=== PATIENT | female | born 1990 | race Caucasian/White ===

== ENCOUNTER → 2016-10-24 | Outpatient (CLI) | payer BC | END | disposition home or self-care (01) | LOC: C.PAPS 09:31 | PROVIDERS: ATTEND Obstetrics & Gynecology | DX: Z01.419 Encounter for gynecological examination (general) (routine) without abnormal findings (principal) ==

== ENCOUNTER → 2017-08-23 | Outpatient (CLI) | payer BC ==
[2017-08-23 18:03] LABS: PREG INTERNAL NEGATIVE QC NEG CLEAR BACKGROUND; PREG INTERNAL POSITIVE QC POS CONTROL LINE
== END | disposition home or self-care (01) ==
LOC: C.LAB1850 16:27
PROVIDERS: ATTEND Physician Assistant
DX: N92.6 Irregular menstruation, unspecified (principal)

== ENCOUNTER → 2017-11-01 | Outpatient (CLI) | payer BC | END | disposition home or self-care (01) | LOC: C.PAPS 10:14 | PROVIDERS: ATTEND Physician Assistant | DX: Z01.419 Encounter for gynecological examination (general) (routine) without abnormal findings (principal) ==

== ENCOUNTER → 2018-04-08 | Outpatient (CLI) | payer BC ==
[2018-04-08 10:17] LABS: BASO % 0.5 %; BASO ABS # 0.03 K/uL (0-0.2); EOS % 1.5 %; EOS ABS # 0.09 K/uL (0-0.5); HEMATOCRIT 38.4 % (37-47); HEMOGLOBIN 13.4 g/dL (12.0-16.0); LYMPH % 21.3 %; LYMPH ABS # 1.31 K/uL (1.2-3.4); MEAN CELL VOLUME 89.1 fL (80-100); MEAN CORPUSCULAR HEMOGLOBIN 31.1 pg (25-34); MEAN CORPUSCULAR HGB CONC 34.9 g/dl (32-36); MEAN PLATELET VOLUME 10.2 fL (7.4-10.4); MONO % 7.1 %; MONO ABS # 0.44 K/uL (0.11-0.59); NEUT % 69.6 %; NEUT ABS # 4.29 K/uL (1.4-6.5); PLATELET COUNT 286 K/uL (130-400); RED CELL DISTRIBUTION WIDTH CV 12.5 % (11.5-14.5); RED CELL DISTRIBUTION WIDTH SD 40.2 fL (36.4-46.3); WHITE BLOOD COUNT 6.16 K/uL (4.8-10.8)
== END | disposition home or self-care (01) ==
LOC: C.LAB1850 09:00
PROVIDERS: ATTEND Obstetrics & Gynecology
DX: Z34.01 Encounter for supervision of normal first pregnancy, first trimester (principal)

== ENCOUNTER → 2018-05-06 | Outpatient (CLI) | payer BC | END | disposition home or self-care (01) | LOC: C.LABSPEC 13:51 | PROVIDERS: ATTEND Obstetrics & Gynecology | DX: O23.41 Unspecified infection of urinary tract in pregnancy, first trimester (principal) ==

== ENCOUNTER 2018-11-25 14:01 | Inpatient (IN) ==
[2018-11-25] MEDS ORDERED: OXYTOCIN 30 UNITS/500 ML BAG IV PRN (14:10)
[2018-11-25] MEDS ORDERED: LACTATED RINGER'S 1,000 ML IV PRN ×3 (14:10→17:55)
[2018-11-25 14:49] LABS: Hematocrit (blood only) 36.5 % (37-47); Hemoglobin 12.8 g/dL (12.0-16.0); Mean Corpuscular Volume 90.6 fL (80-100); Mean Platelet Volume 10.2 fL (7.4-10.4); Platelet Count 226 K/uL (130-400); RDW Coefficient of Variation 13.4 % (11.5-14.5); Red Blood Count 4.03 M/uL (4.2-5.4); White Blood Count 6.83 K/uL (4.8-10.8)
[2018-11-25 15:05] LABS: Mean Corpuscular Hgb Conc 35.1 g/dL (32-36)
--- NOTE | 2018-11-25 15:41 | History & Physical Report ---
Date of Service November 25, 2018 Assessment & Plan (1) Normal labor: IUP at 41 weeks in labor will admit and allow her to walk for now. will AROM when cervix is reachable anticipate vaginl . History of Present Illness Primary Care Provider: NO PCP Patient is a 28 yo white female who presents at 41 weeks with regular contractions & cervical change. She was checked in the office & is now 4cm dilated. NO SPROM or bloody show. She is being admitted in labor. Allergies Allergy/AdvReac Type Severity Reaction Status Date / Time No Known Allergies Allergy Unverified 11/25/18 01:54 Home Medications Home Medications Medication Instructions Recorded Confirmed Type vit-iron fum-folic ac 1 tab PO DAILY 11/25/18 11/25/18 History [ Vitamin] ranitidine HCl 250 mg PO DAILY 11/25/18 11/25/18 History Patient History Social History Preferred Language: Ecuadorean Communication Ability: Effective Securities Attorney Required: No Beliefs That Will Affect Care: None marital status: Current Living Situation: Spouse Other Information That Helps Us Care for You: No Feels Safe at Home: Yes Safety Concerns: Feels Safe At This Time Smoking Status: Never smoker Hx Alcohol Use: No Hx Substance Use: No Review of Systems All systems reviewed & are unremarkable except as noted in HPI & below Physical Exam Vital Signs (Past 24 Hours): Last Vital Signs Temp 36.7 C 11/25/18 15:25 Pulse 96 H 11/25/18 15:25 Resp 18 11/25/18 15:25 BP 128/84 11/25/18 15:25 Constitutional: WD/WN, vitals as above Respiratory: normal respiratory effort, lungs clear to auscultation Cardiovascular: RRR, no murmur, no edema Genitourinary: OB Exam Abdomen: + vertex and + regular contractions (every 4 minutes) Manual OB Exam: + cervical dilation 4 cm, + cervical effacement 90% and + station (very posterior) -1 OB Exam Monitor Tracing: + external FHT monitor used, + external uterine monitor used, + category I and + normal FHT variability
[2018-11-25] MEDS ORDERED: ePHEDrine sulfate 50 MG/ML AMP ONE (16:46)
[2018-11-25] MEDS ORDERED: fentaNYL citrate 100 MCG/2 ML VIAL ONE (16:46)
[2018-11-25] MEDS ORDERED: BUPIVACAINE 0.25% 30 ML VIAL ONE (16:46)
[2018-11-25] MEDS ORDERED: fentaNYL 2MCG/ML ROPIV 1.25MG/ML 100 ML BAG EPI ONE (16:47)
--- NOTE | 2018-11-25 17:07 | Anesthesiology Consultation ---
Date of Service November 25, 2018 Assessment & Plan Chart Review Chart Review: Patient NOT seen in Pre Admission Testing and Acceptable Risk for Labor Epidural Consults Requested none ASA ASA2 Proposed Anesthesia Anesthesia Type: Labor Epidural Risk / Benefits Reviewed With: PT / POA / Parent / Guardian, Accepts Plan and Informed Consent Obtained NPO Date Last Intake of Fluids: 11/25/18 Time Last Intake of Fluids: 17:47 Date Last Intake of Solids: 11/24/18 Time Last Intake of Solids: 22:00 History Height/Weight Height: 5 ft 4 in Weight: 69.944 kg Allergies Allergy/AdvReac Type Severity Reaction Status Date / Time No Known Allergies Allergy Unverified 11/25/18 01:54 Medications Home Medications Medication Instructions Recorded Confirmed Last Taken vit-iron fum-folic ac 1 tab PO DAILY 11/25/18 11/25/18 1 Day Ago [ Vitamin] ~11/24/18 ranitidine HCl 250 mg PO DAILY 11/25/18 11/25/18 1 Day Ago ~11/24/18 Active Medications Generic Name Dose Route Start Last Admin Trade Name Ramyq PRN Reason Stop Dose Admin Lactated Ringer's 1,000 mls @ 125 mls/hr 11/25/18 14:15 11/25/18 17:26 Lr IV 11/27/18 14:14 125 mls/hr .Q8H PRN Administration tachysystole Lactated Ringer's 1,000 mls @ 999 mls/hr 11/25/18 14:10 11/25/18 16:27 Lr IV 12/25/18 14:09 999 mls/hr .Q1H1M PRN Administration (Pre-Anesthesia) Past Anesthesia History No Hx of Anesthesia Complications and No Family Hx of Anesthesia Complications History of PONV No Motion Sickness Screening History of Motion Sickness: No Social History Smoking Status: Never smoker Hx Alcohol Use: No Hx Substance Use: No Exercise / Class Metabolic Activity II 4-5 Yardwork/Stairs/Walk up hill Negative for chest pain or shortness of breath. Review of Systems Patient denies history of abnormal bleeding or bleeding disorder. Patient denies active use of anticoagulants other than low dose aspirin. Patient denies numbness, tingling or weakness in his lower extremities. Patient denies active symptoms of GERD. Physical Exam Vital Signs Last Vital Signs Temp 36.7 C 11/25/18 15:25 Pulse 88 11/25/18 17:09 Resp 22 11/25/18 16:14 BP 134/87 11/25/18 17:09 Pulse Ox 100 11/25/18 17:06 Constitutional not obese (Gravid uterus) ENMT Mouth: no TMJ abnormality and oral opening not small Thyromental Distance: < 3.5 Finger Breadths Mallampati Class: II Neck normal visual inspection; neck extension not limited Respiratory normal respiratory effort Auscultation: lungs clear to auscultation bilaterally Cardiovascular Rate/Rhythm: regular rate and regular rhythm Heart Sounds: no murmur Psychiatric A+Ox3, euthymic affect Orientation: alert and oriented x 3 Testing Laboratory Results 11/25/18 14:30
[2018-11-25] MEDS ORDERED: ONDANSETRON INJ 2 MG/ML 2 ML VIAL IV PRN (17:55)
[2018-11-25] MEDS ORDERED: DiphenhydrAMINE HCL 50 MG/ML VIAL IV PRN (17:55)
[2018-11-25] MEDS ORDERED: fentaNYL 2MCG/ML ROPIV 1.25MG/ML 100 ML BAG EPI PRN (17:55)
[2018-11-25] MEDS ORDERED: NALBUPHINE HCL INJ 10 MG/ML AMP IV PRN (17:55)
[2018-11-25] MEDS ORDERED: NALOXONE HCL 0.4 MG/1 ML VIAL/CARP IV PRN (17:55)
[2018-11-25] MEDS ORDERED: NALOXONE HCL 1 MG in SODIUM CHLORIDE 0.9% 1000ML 1,000 ML IV PRN (17:55)
[2018-11-25] MEDS ORDERED: ePHEDrine sulfate 50 MG/ML AMP IV PRN (17:55)
[2018-11-26] MEDS ORDERED: BENZOCAINE 20% AER SPR 82.5 GM CAN EXT PRN (00:02)
[2018-11-26] MEDS ORDERED: BISACODYL 10 MG SUPP PR PRN (00:02)
[2018-11-26] MEDS ORDERED: ACETAMINOPHEN 325 MG TAB PO PRN (00:02)
[2018-11-26] MEDS ORDERED: DIPHTHERIA/TETANUS/PERTUSSIS 0.5 ML SYR/VIAL IM ONE (00:02)
[2018-11-26] MEDS ORDERED: SUPERCREAM 0.870% 15 GM JAR EXT PRN (00:02)
[2018-11-26] MEDS ORDERED: OXYTOCIN 30 UNITS/500 ML BAG IV PRN (00:02)
[2018-11-26] MEDS ORDERED: HYDROCORTISONE ACETATE 25 MG SUPP PR PRN (00:02)
--- NOTE | 2018-11-26 02:17 | Delivery Summary ---
DATE OF OPERATION: 11/25/2018 The patient is a 28-year-old G1, P0 white female who presents at 41 weeks with regular contractions in labor. She received epidural analgesia. Membranes were ruptured for clear fluid. She progressed to full dilation and pushed effectively over intact perineum for delivery of a viable male infant. Mouth and nasopharynx were suctioned on the perineum. The rest of the was delivered easily and was placed on the mother's abdomen for further attention and drying. After 30 seconds, the cord was clamped and cut. After cord blood was obtained, the placenta was expressed intact with a 3-vessel cord. A first-degree vaginal laceration was repaired with 3-0 chromic in the usual fashion. Estimated blood loss was 200 mL. was vigorous and moving all 4 limbs. Mother and were doing well after delivery. I attest to the content of the Intraoperative Record and any orders documented therein. Any exception s are noted below.
[2018-11-26] MEDS: IBUPROFEN 600 MG TAB PO PRN ×5 (02:18→20:41)
--- NOTE | 2018-11-26 06:58 | Obstetrical Progress Note ---
Date of Service <Dillon Kimball - Last Filed: 11/26/18 06:58> November 26, 2018 Assessment & Plan <Dillon Kimball DO - Last Filed: 11/26/18 06:58> (1) (spontaneous vaginal delivery): -vital signs reviewed and WNL -last Hgb 12.8 -Blood type: O+, GBS-, Rubella Immune -pt doing well clinically -encourage ambulation, monitor and control pain with motrin tylenol, cont regular diet, monitor lochia -cont encourage breast feeding Subjective <Dillon Kimball - Last Filed: 11/26/18 06:58> 28 y/o PPD1 found in bed this morning in NAD. Reports no acute overnight events. Pt states that she has no pain other than appropriate soreness. Tolerating PO intake without N/V. Able to ambulate without issue. She is breast feeding without issue. No issues with voiding, no BM yet. No other acute concerns or complaints. Review of Systems All systems reviewed & are unremarkable except as noted in HPI & below Physical Exam <Dillon Kimball - Last Filed: 11/26/18 06:58> Vital Signs (Past 24 Hours) Last Vital Signs Temp 36.6 C 11/26/18 05:00 Pulse 88 11/26/18 05:00 Resp 16 11/26/18 05:00 BP 118/64 11/26/18 05:00 Pulse Ox 99 11/26/18 05:00 Constitutional WD/WN, vitals as above Eyes PERRL, conjunctivae normal, anicteric sclerae ENMT external ear and nose normal, oropharynx normal Respiratory normal respiratory effort, lungs clear to auscultation Cardiovascular RRR, no murmur, no edema Gastrointestinal (Abdomen) mild abd tenderness Skin no rashes, warm and dry Psychiatric A+Ox3, euthymic affect Lymphatic no LE swelling, no calf tenderness Results & Data <Diloln Kimball - Last Filed: 11/26/18 06:58> Laboratory Results Laboratory Results - last 24 hr 11/25/18 14:30 WBC 6.83 RBC 4.03 L Hgb 12.8 Hct 36.5 L MCV 90.6 MCH 31.8 MCHC 35.1 RDW Std Deviation 44.0 RDW Coeff of Laurie 13.4 Plt Count 226 MPV 10.2 Medications Administered Current Inpatient Medications Acetaminophen (Tylenol) 650 mg PO Q6H PRN PRN Reason: Pain/MONTES/Fever Stop: 12/26/18 00:01 Benzocaine (Dermoplast Pain Relieving [place]) 1 appln EXT PRN PRN PRN Reason: Perineal Discomfort Stop: 12/26/18 00:01 Last Admin: 11/26/18 04:47 Dose: 82.5 appln Documented by: Bisacodyl (Dulcolax) 5 mg PO 2000 MCKAYLA Stop: 11/27/18 20:01 Bisacodyl (Dulcolax) 10 mg CA DAILY PRN PRN Reason: No BM on 2nd post- day Stop: 12/26/18 00:01 Cocaine HCl (Supercream 0.870%) 1 gm EXT BID PRN PRN Reason: Hemorrhoidal Inflammation Stop: 12/10/18 00:01 Diphenhydramine HCl (Benadryl) 25 mg IV Q6H PRN PRN Reason: Itching Stop: 11/26/18 17:54 Docusate Sodium (Colace) 100 mg PO BID [facility] Stop: 12/26/18 08:59 Ephedrine Sulfate (Ephedrine Sulfate) 10 mg IV Q5M PRN PRN Reason: Hypotension Stop: 11/26/18 17:54 Hydrocortisone (Anusol Hc) 25 mg CA BID PRN PRN Reason: Hemorrhoidal Inflammation Stop: 12/26/18 00:01 Lactated Ringer's (Lr) 1,000 mls @ 125 mls/hr IV .Q8H PRN PRN Reason: tachysystole Stop: 11/27/18 14:14 Last Infusion: 11/26/18 01:33 Dose: Infused Documented by: Oxytocin (Pitocin) 30 units in 500 mls @ 333.333 mls/hr IV .Q1H30M PRN; Protocol PRN Reason: Bleeding Control Stop: 12/25/18 14:09 Last Titration: 11/26/18 01:33 Dose: Infused Documented by: Lactated Ringer's (Lr) 1,000 mls @ 999 mls/hr IV .Q1H1M PRN PRN Reason: (Pre-Anesthesia) Stop: 12/25/18 14:09 Last Infusion: 11/25/18 22:45 Dose: Infused Documented by: Lactated Ringer's (Lr) 1,000 mls @ 999 mls/hr IV .Q1H1M PRN PRN Reason: Hypotension Stop: 11/26/18 17:54 Naloxone HCl 1 mg/ Sodium (Chloride) 1,002.5 mls @ 50 mls/hr IV .Q20H3M PRN PRN Reason: itching or nausea Stop: 11/26/18 17:54 Oxytocin (Pitocin) 30 units in 500 mls @ 333.333 mls/hr IV .Q1H30M PRN; Protocol PRN Reason: BLEEDING CONTROL Stop: 12/26/18 00:01 Ibuprofen (Motrin) 600 mg PO Q4H PRN PRN Reason: Pain/MONTES/Cramping/Fever Stop: 12/26/18 00:01 Last Admin: 11/26/18 02:18 Dose: 600 mg Documented by: Nalbuphine HCl (Nubain) 5 mg IV Q10M PRN PRN Reason: itching or nausea Stop: 11/26/18 17:54 Naloxone HCl (Narcan) 0.1 mg IV UD PRN PRN Reason: respiratory depression Stop: 11/26/18 17:54 Ondansetron HCl (Zofran) 4 mg IV Q6H PRN PRN Reason: Nausea And Vomiting Stop: 11/26/18 17:54 Prenat Multivit/[place]/Iron/Folic Ac ( Vitamin) 1 tab PO QAM MCKAYLA Stop: 12/26/18 08:59 Ropivacaine (Epidural (L&D)) 100 ml EPI PRN PRN; Protocol PRN Reason: Pain R/T Labor Stop: 11/26/18 17:54 <Lili Anton MD, FACOG - Last Filed: 11/26/18 07:34> Co-Signing Physician Notes Resident Physician Supervision Note: I interviewed and examined the patient. Discussed with Dr. Ladonna Kimball and agree with findings and plan as documented in the note. Any exceptions or clarifications are listed here: [None] Documented By: Lili Anton MD, FACOG Resident Activity Tracking <Dillon Kimball DO - Last Filed: 11/26/18 06:58> Resident Involvement: Resident Care Provided Care Provided: OB Delivery
[2018-11-26] MEDS ORDERED: DOCUSATE SODIUM 100 MG CAP ONE (07:22)
--- NOTE | 2018-11-26 07:52 | Anesthesia Procedure Note ---
Date of Service November 26, 2018 Anesthesia Post Epidural Note Vital Signs Vital Signs: Temp Pulse Resp BP Pulse Ox 97.9 F 88 16 118/64 99 11/26/18 05:00 11/26/18 05:00 11/26/18 05:00 11/26/18 05:00 11/26/18 05:00 Notes Mental Status: alert / awake / arousable and participated in evaluation Nausea / Vomiting: adequately controlled Pain: adequately controlled Airway Patency, RR, SpO2: stable & adequate BP & HR: stable & adequate Hydration State: stable & adequate Neuraxial Anesthesia: was administered and sensory block resolved Anesthetic Complications: no major complications apparent and Pt Satisfied with anesthetic care Epidural: Removed without complications and With tip intact
[2018-11-26] MEDS: DOCUSATE SODIUM 100 MG CAP PO SCH ×2 (08:32→20:40)
[2018-11-26] MEDS: PRENATAL VITAMIN 1 TAB PO SCH (08:32)
[2018-11-27 06:33] LABS: Hemoglobin 11.6 g/dL (12.0-16.0); Mean Corpuscular Hgb Conc 34.1 g/dL (32-36); Mean Corpuscular Volume 90.9 fL (80-100); Mean Platelet Volume 9.9 fL (7.4-10.4); Platelet Count 192 K/uL (130-400); RDW Coefficient of Variation 13.5 % (11.5-14.5); RDW Standard Deviation 44.5 fL (36.4-46.3); Red Blood Count 3.74 M/uL (4.2-5.4); White Blood Count 8.68 K/uL (4.8-10.8)
--- NOTE | 2018-11-27 07:05 | Obstetrical Progress Note ---
Date of Service <Dillon John Jigar - Last Filed: 11/27/18 07:05> November 27, 2018 Assessment & Plan <Dillon KimballDO - Last Filed: 11/27/18 07:05> (1) (spontaneous vaginal delivery): -vital signs reviewed and WNL -last Hgb 11.6 -Blood type: O+, GBS-, Rubella Immune -pt doing well clinically -encourage ambulation, monitor and control pain with motrin tylenol, cont regular diet, monitor lochia -cont encourage breast feeding -plan for d/c today Subjective <Dillon CCabrera KimballDO - Last Filed: 11/27/18 07:05> 28 y/o PPD2 found in bed this morning in NAD. Reports no acute overnight events. Pt states that she has no pain other than appropriate soreness. Tolerating PO intake without N/V. Able to ambulate without issue. She is breast feeding without issue. No issues with voiding, no BM yet. No other acute concerns or complaints. Pt ok with plan for d/c today. Review of Systems All systems reviewed & are unremarkable except as noted in HPI & below Physical Exam <Dillon KimballDO - Last Filed: 11/27/18 07:05> Vital Signs (Past 24 Hours) Last Vital Signs Temp 36.8 C 11/26/18 23:28 Pulse 86 11/26/18 23:28 Resp 18 11/26/18 23:28 BP 119/72 11/26/18 23:28 Pulse Ox 96 11/26/18 23:28 Constitutional WD/WN, vitals as above Eyes PERRL, conjunctivae normal, anicteric sclerae ENMT external ear and nose normal, oropharynx normal Respiratory normal respiratory effort, lungs clear to auscultation Cardiovascular RRR, no murmur, no edema Skin no rashes, warm and dry Psychiatric A+Ox3, euthymic affect Results & Data <Dillon KimballDO - Last Filed: 11/27/18 07:05> Laboratory Results Laboratory Results - last 24 hr 11/27/18 06:22 WBC 8.68 RBC 3.74 L Hgb 11.6 L Hct 34.0 L MCV 90.9 MCH 31.0 MCHC 34.1 RDW Std Deviation 44.5 RDW Coeff of Laurie 13.5 Plt Count 192 MPV 9.9 Medications Administered Current Inpatient Medications Acetaminophen (Tylenol) 650 mg PO Q6H PRN PRN Reason: Pain/MONTES/Fever Stop: 12/26/18 00:01 Benzocaine (Dermoplast Pain Relieving [place]) 1 appln EXT PRN PRN PRN Reason: Perineal Discomfort Stop: 12/26/18 00:01 Last Admin: 11/26/18 04:47 Dose: 82.5 appln Documented by: Bisacodyl (Dulcolax) 5 mg PO 2000 [facility] Stop: 11/27/18 20:01 Bisacodyl (Dulcolax) 10 mg ID DAILY PRN PRN Reason: No BM on 2nd post- day Stop: 12/26/18 00:01 Cocaine HCl (Supercream 0.870%) 1 gm EXT BID PRN PRN Reason: Hemorrhoidal Inflammation Stop: 12/10/18 00:01 Docusate Sodium (Colace) 100 mg PO BID [facility] Stop: 12/26/18 08:59 Last Admin: 11/26/18 20:40 Dose: 100 mg Documented by: Hydrocortisone (Anusol Hc) 25 mg ID BID PRN PRN Reason: Hemorrhoidal Inflammation Stop: 12/26/18 00:01 Lactated Ringer's (Lr) 1,000 mls @ 125 mls/hr IV .Q8H PRN PRN Reason: tachysystole Stop: 11/27/18 14:14 Last Infusion: 11/26/18 01:33 Dose: Infused Documented by: Oxytocin (Pitocin) 30 units in 500 mls @ 333.333 mls/hr IV .Q1H30M PRN; Protocol PRN Reason: Bleeding Control Stop: 12/25/18 14:09 Last Titration: 11/26/18 01:33 Dose: Infused Documented by: Lactated Ringer's (Lr) 1,000 mls @ 999 mls/hr IV .Q1H1M PRN PRN Reason: (Pre-Anesthesia) Stop: 12/25/18 14:09 Last Infusion: 11/25/18 22:45 Dose: Infused Documented by: Oxytocin (Pitocin) 30 units in 500 mls @ 333.333 mls/hr IV .Q1H30M PRN; Protocol PRN Reason: BLEEDING CONTROL Stop: 12/26/18 00:01 Ibuprofen (Motrin) 600 mg PO Q4H PRN PRN Reason: Pain/MONTES/Cramping/Fever Stop: 12/26/18 00:01 Last Admin: 11/26/18 20:41 Dose: 600 mg Documented by: Prenat Multivit/[place]/Iron/Folic Ac ( Vitamin) 1 tab PO QAM MCKAYLA Stop: 12/26/18 08:59 Last Admin: 11/26/18 08:32 Dose: 1 tab Documented by: <Jhoana Adan MD, FACOG - Last Filed: 11/27/18 07:53> Co-Signing Physician Notes Resident Physician Supervision Note: I interviewed and examined the patient. Discussed with Dr. Aleman and agree with findings and plan as documented in the note. Any exceptions or clarifications a re listed here: [None] Documented By: Jhoana Adan MD, FACOG Resident Activity Tracking <Dillon Kimball DO - Last Filed: 11/27/18 07:05> Resident Involvement: Resident Care Provided Care Provided: OB Delivery
[2018-11-27] MEDS: DOCUSATE SODIUM 100 MG CAP PO SCH (08:54)
[2018-11-27] MEDS: PRENATAL VITAMIN 1 TAB PO SCH (08:54)
[2018-11-27] MEDS ORDERED: BISACODYL 5 MG TABEC PO SCH (20:00)
== END 2018-11-27 20:30 | disposition home or self-care (01) | DRG 807 ==
LOC: 4S1 14:01 → 4S2 11-26 05:28

== ENCOUNTER 2022-11-13 23:25 | Inpatient (IN) ==
[2022-11-13] MEDS: LACTATED RINGER'S 1,000 ML IV PRN (23:40)
[2022-11-13] MEDS ORDERED: LIDOCAINE 1% LOCAL 20 ML VIAL INFIL PRN (23:40)
[2022-11-13] MEDS ORDERED: PENICILLIN G POTASSIUM 6 MU in DEXTROSE 5% 250 ML IV STA (23:53)
--- NOTE | 2022-11-14 00:03 | History & Physical Report ---
Date of Service November 14, 2022 Assessment & Plan (1) Normal labor: Plan admit, try to get epidural. pcn for gbs positive. fetus reassuring. anticipate . Admission and Anticipated Discharge Date Admission Date: November 13, 2022 History of Present Illness Chief Complaint: contractions Primary Care Provider: Jeison Graham DO Patient is a 32yowf with iup at40 5/7 weeks who presents to labor and delivery in active labor. Found to be 8cm. gbs positive. Has not had a gush or significant vaginal bleeding. 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 NON-REACTIVE (NON-REACTIVE) 03/29/22 Hepatitis C Antibody (EIA) NON-REACTIVE (NON-REACTIVE) 03/29/22 HIV (1&2) Ab and P24 Ag, 4th Gener NEG (NEG) 04/08/18 HIV (1&2) Ag and Ab Confirmation NON-REACTIVE (NON-REACTIVE) 03/29/22 Glucose 1 Hour 50 gm Load 84 mg/dl (70-130) 08/16/22 OB Optional Labs: Chlamydia trachomatis RNA NOT DETECTED (NOT DETECTED) 03/29/22 Neisseria gonorrhoeae RNA NOT DETECTED (NOT DETECTED) 03/29/22 Thyroid Stimulating Hormone (TSH) 1.957 uIu/ml (0.300-4.500) 01/06/22 Labs Reviewed: Declines cf/sma--mln Declines cfdna--mln Declines msafp--mln gbs positive Allergies Allergy/AdvReac Type Severity Reaction Status Date / Time No Known Drug Allergies Allergy Verified 11/13/22 11:24 Home Medications Medication Instructions Recorded Confirmed Type prenat.vits,yeimi,[id number]-[id number] 1 tab PO DAILY 03/22/22 11/13/22 History Patient History Medical History Atypical squamous cells of undetermined significance (ASC-US) on cervical Pap smear History of varicella vaccination HPV test positive IUD (intrauterine device) in place 08/20/19-kyleena Surgical History H/O wisdom tooth extraction (~11/08/11) Family History Mother Anxiety Depression Hypertension Breast cancer Thyroid disease Grandfather (Paternal) Lung cancer Aunt Breast cancer maternal aunt Grandmother (Paternal) Breast cancer Denies family history of Pancreatic cancer Ovarian cancer Prostate cancer Colorectal cancer Uterine cancer Social History Smoking Status: Never smoker Second Hand Exposure: No; Hx Alcohol Use: No Hx Substance Use: No Preferred Language: Argentine Communication Ability: Effective Visual Impairment: No Limitations Hearing Ability: Normal Manager Delivery Required: No Beliefs That Will Affect Care: None marital status: marital status details: Jeison Carmichael ([phone] Current Living Situation: Family Current Living Situation Comment: lives with spouse, child, 2 step children, dogs current occupational status: employed current occupation: works from home Feels Safe at Home: Yes Safety Concerns: Feels Safe At This Time Childhood Exposure to Second-Hand Smoke: Yes Dental Care, Regularly: Yes Physical Activity Frequency: 1-2 Times per Week Seatbelt Use: always Sunscreen Use: Yes Assistive Devices: None OB History Past Pregnancies Del. Date GA wks Lbr Lgth wt Sex Type del Anes Place Del Prov ? Comment 11/25/18 41 8-[address] [facility] Dr. De Oliveira No Physical Exam Constitutional: WD/WN, vitals as above Gastrointestinal (Abdomen): soft, gravid, nt Psychiatric: A+Ox3, euthymic affect Genitourinary: cx--8100/-1 toco--q2-3 min efm--120s with mod variability , no decels Results & Data ([facility]) Vital Signs (Past 12 Hours) Vital Signs Resp 11/13/22 23:41 18 Coding Level of Care Code None Diagnoses Normal labor O80; Z37.9
[2022-11-14 00:05] LABS: Hematocrit (blood only) 33.3 % (37.0-47.0); Hemoglobin 11.6 g/dl (12.0-16.0); Mean Corpuscular Hemoglobin 30.9 pg (25.0-34.0); Mean Corpuscular Hgb Conc 34.8 g/dL (32.0-36.0); Mean Corpuscular Volume 88.8 fL (80.0-100.0); Mean Platelet Volume 9.6 fL (9.4-12.4); Platelet Count 280 K/uL (130-400); RDW Coefficient of Variation 13.1 % (11.5-14.5); RDW Standard Deviation 42.2 fL (36.4-46.3); Red Blood Count 3.75 M/uL (4.20-5.40); White Blood Count 7.08 K/ul (4.8-10.8)
[2022-11-14] MEDS ORDERED: fentaNYL 2MCG/ML ROPIVACAINE 1.25MG/ML 100 ML BAG EPI PRN (00:44)
[2022-11-14] MEDS ORDERED: NALOXONE HCL 0.4 MG/1 ML VIAL/CARP IV PRN (00:44)
[2022-11-14] MEDS ORDERED: ONDANSETRON INJ 2 MG/ML 2 ML VIAL IV PRN (00:44)
[2022-11-14] MEDS ORDERED: NALOXONE HCL 1 MG in SODIUM CHLORIDE 0.9% 1000ML 1,000 ML IV PRN (00:44)
[2022-11-14] MEDS ORDERED: ePHEDrine sulfate 50 MG/ML AMP IV PRN (00:44)
[2022-11-14] MEDS ORDERED: NALBUPHINE HCL INJ 10 MG/ML AMP IV PRN (00:44)
[2022-11-14] MEDS: LACTATED RINGER'S 1,000 ML IV PRN (00:44)
[2022-11-14] MEDS ORDERED: diphenhydrAMINE 50 MG/ML VIAL IV PRN (00:44)
[2022-11-14] MEDS ORDERED: fentaNYL citrate 100 MCG/2 ML VIAL ONE (00:50)
[2022-11-14] MEDS ORDERED: ePHEDrine sulfate 50 MG/ML AMP ONE (00:50)
[2022-11-14] MEDS ORDERED: fentaNYL 2MCG/ML ROPIVACAINE 1.25MG/ML 100 ML BAG EPI ONE (00:51)
[2022-11-14] MEDS ORDERED: LIDOCAINE 2%/EPINEPHRINE 1:200,000 20 ML SDV ONE (00:51)
[2022-11-14] MEDS ORDERED: BUPIVACAINE 0.25% 30 ML VIAL ONE (00:51)
[2022-11-14] MEDS ORDERED: SODIUM CHLORIDE 0.9% INJ 10 ML VIAL ONE (00:51)
--- NOTE | 2022-11-14 01:33 | Labor Progress Brief Note ---
Date of Service November 14, 2022 Subjective comfortable with epidural Assessment & Plan (1) Normal labor: Plan begin stage 2 soon. fetus category one. anticipate . Admission and Anticipated Discharge Date Admission Date: November 13, 2022 Physical Exam Physical Exam: cx--ant lip/0 toco--q2-4min arom--minimal clear efm--120s with mod variability, accels to 170s, no decels Results & Data ([facility]) Vital Signs (Past 12 Hours) Vital Signs Temp Pulse Resp BP Pulse Ox 11/14/22 01:29 97 H 92 11/14/22 01:26 71 100 11/14/22 01:24 76 124/70 11/14/22 01:21 81 100 11/14/22 01:16 84 100 11/14/22 01:00 18 11/14/22 01:00 18 11/13/22 23:45 18 11/13/22 23:45 36.6 C 18 11/14/22 01:11 91 H 99 11/14/22 01:06 90 98 11/14/22 01:05 93 H 111/67 11/14/22 01:01 100 H 99 11/14/22 00:59 96 H 113/74 11/14/22 00:56 96 H 98 11/14/22 00:55 83 107/64 11/14/22 00:51 92 H 99 11/14/22 00:49 95 H 112/71 11/14/22 00:46 91 H 98 11/14/22 00:44 93 H 111/61 11/14/22 00:41 96 H 100 11/14/22 00:38 92 H 113/62 11/14/22 00:36 90 114/67 100 11/14/22 00:34 99 H 116/73 11/14/22 00:32 91 H 110/67 11/14/22 00:31 89 100 11/14/22 00:30 90 107/64 11/14/22 00:28 86 114/68 11/14/22 00:26 87 111/63 100 11/14/22 00:21 90 100 11/14/22 00:22 89 117/62 11/14/22 00:16 98 H 95 11/14/22 00:17 102 H 92 11/13/22 23:41 18 Coding Level of Care Code None Diagnoses Normal labor O80; Z37.9
[2022-11-14] MEDS: OXYTOCIN 30 UNITS/500 ML BAG IV PRN ×2 (02:31→05:21)
[2022-11-14] MEDS ORDERED: ACETAMINOPHEN 325 MG TAB PO PRN (02:39)
[2022-11-14] MEDS ORDERED: oxyCODONE/ACETAMINOPHEN 5mg/325mg TAB PO PRN (02:39)
[2022-11-14] MEDS ORDERED: DIPHTHERIA/TETANUS/PERTUSSIS 0.5mL SYR/VIAL (Age 7+yrs) IM ONE (02:39)
[2022-11-14] MEDS ORDERED: OXYTOCIN 30 UNITS/500 ML BAG IV PRN (02:39)
[2022-11-14] MEDS ORDERED: BENZOCAINE 20% AER SPR 82.5 GM CAN EXT PRN (02:39)
[2022-11-14] MEDS ORDERED: HYDROCORTISONE ACETATE 25 MG SUPP PR PRN (02:39)
[2022-11-14] MEDS ORDERED: PENICILLIN G POTASSIUM 3 MU in DEXTROSE 5% 100 ML IV PRN (02:40)
--- NOTE | 2022-11-14 02:43 | Delivery Summary ---
Vaginal Delivery Summary Date of Service November 14, 2022 Vaginal Delivery Summary and 1st Degree LAC (bilateral labial lacs) Pre-operative Diagnosis: at 40 5/7 active labor Post-operative Diagnosis: same Procedure: epidural arom bilateral labial and first degree laceration repair EBL: 400cc Anesthesia: epidural Procedure: The patient presented to labor and delivery at 8cm. admitted and got epidural. arom for clear fluid. the patient progressed to c/c/+1. The patient pushed for about 15 min to deliver a viable female in jose m position. The nose and mouth were bulb suctioned on the perineum, a loose nuchal cord x 1 was reduced and the rest of the infant was then delivered without difficulty. The baby was vigorous. The nose and mouth were again bulb suctioned and the infant was placed in the maternal abdomen for drying and a ttention. Cord was clamped and cut at one minute of life. Cord blood and segment obtained. Placenta delivered spontaneous, intact with a three vessel cord. Cervix/sulci/rectum were intact. A first degree perineal laceration and bilateral labial tears were repaired in the normal standard fashion. Hemostasis obtained with dilute pitocin and fundal massage. Apgars were 8/9. Mother and baby doing well at the end of the delivery. [facility] Vaginal Delivery Charge Delivery Type Details: and 1st Degree LAC (bilateral labial lacs)
--- NOTE | 2022-11-14 03:10 | Anesthesia Procedure Note ---
Date of Service November 14, 2022 Anesthesia Post Epidural Note Vital Signs Vital Signs: Temp Pulse Resp BP Pulse Ox 36.7 C 92 H 18 109/61 97 11/14/22 02:45 11/14/22 03:06 11/14/22 03:00 11/14/22 02:39 11/14/22 03:06 Pain Intensity Abdomen: Pain Intensity: 10 Notes Mental Status: alert / awake / arousable Nausea / Vomiting: adequately controlled Pain: adequately controlled Airway Patency, RR, SpO2: stable & adequate BP & HR: stable & adequate Hydration State: stable & adequate Neuraxial Anesthesia: was administered and sensory block is resolving Anesthetic Complications: no major complications apparent and Pt Satisfied with anesthetic care Epidural: Removed without complications and With tip intact
[2022-11-14] MEDS: IBUPROFEN 600 MG TAB PO PRN ×4 (03:52→20:49)
[2022-11-14] MEDS ORDERED: MEPERIDINE HCL 25 MG/ML CARP/VIAL IV ONE (05:40)
--- NOTE | 2022-11-14 05:40 | Obstetrical Progress Note ---
Date of Service November 14, 2022 Assessment & Plan (1) hemorrhage associated with low clotting factor: Plan treated and hopefully on top of it. Will continue to monitor closely. Vitals stable. Subjective ctsp because of bleeding. Nursing evaluated and expressed about 400cc clots from the uterus. vitals stable Physical Exam manual exploration of the vagina with removal of some more clot and uterus explored with fingers and no further clot in the uterus appreciated. 800mcg of cytotec placed dilute pitocin running in open. Results & Data ([facility]) Vital Signs (Past 12 Hours) Vital Signs Temp Pulse Resp BP Pulse Ox 11/14/22 04:45 18 11/14/22 03:45 18 11/14/22 03:30 18 11/14/22 03:15 18 11/14/22 03:00 18 11/14/22 02:45 36.7 C 18 11/14/22 04:24 85 121/67 11/14/22 03:41 81 97 11/14/22 03:38 83 117/74 11/14/22 03:36 91 H 98 11/14/22 03:31 96 H 98 11/14/22 03:26 104 H 99 11/14/22 03:23 102 H 113/77 11/14/22 03:21 107 H 98 11/14/22 03:16 110 H 97 11/14/22 03:11 108 H 97 11/14/22 03:08 109 H 114/81 11/14/22 03:06 92 H 97 11/14/22 03:01 113 H 97 11/14/22 02:56 109 H 98 11/14/22 02:51 107 H 97 11/14/22 02:46 113 H 98 11/14/22 02:41 99 H 97 11/14/22 02:39 99 H 109/61 11/14/22 02:36 93 H 99 11/14/22 02:31 87 97 11/14/22 02:26 117 H 95 11/14/22 02:23 118 H 90 11/14/22 02:21 146 H 92 11/14/22 02:16 82 99 11/14/22 02:12 92 H 89 L 11/14/22 02:11 84 100 11/14/22 02:09 106 H 141/83 H 11/14/22 02:06 93 H 100 11/14/22 02:00 18 11/14/22 02:00 18 11/14/22 02:01 85 100 11/14/22 01:56 96 H 100 11/14/22 01:53 88 122/76 11/14/22 01:51 90 98 11/14/22 01:46 84 97 11/14/22 01:41 75 100 11/14/22 01:39 91 H 117/76 11/14/22 01:36 86 99 11/14/22 01:31 89 100 11/14/22 01:29 97 H 92 11/14/22 01:26 71 100 11/14/22 01:24 76 124/70 11/14/22 01:21 81 100 11/14/22 01:16 84 100 11/14/22 01:00 18 11/14/22 01:00 18 11/13/22 23:45 18 11/13/22 23:45 36.6 C 18 11/14/22 01:11 91 H 99 11/14/22 01:06 90 98 11/14/22 01:05 93 H 111/67 11/14/22 01:01 100 H 99 11/14/22 00:59 96 H 113/74 11/14/22 00:56 96 H 98 11/14/22 00:55 83 107/64 11/14/22 00:51 92 H 99 11/14/22 00:49 95 H 112/71 11/14/22 00:46 91 H 98 11/14/22 00:44 93 H 111/61 11/14/22 00:41 96 H 100 11/14/22 00:38 92 H 113/62 11/14/22 00:36 90 114/67 100 11/14/22 00:34 99 H 116/73 11/14/22 00:32 91 H 110/67 11/14/22 00:31 89 100 11/14/22 00:30 90 107/64 11/14/22 00:28 86 114/68 11/14/22 00:26 87 111/63 100 11/14/22 00:21 90 100 11/14/22 00:22 89 117/62 11/14/22 00:16 98 H 95 11/14/22 00:17 102 H 92 11/13/22 23:41 18
[2022-11-14] MEDS ORDERED: ceFAZolin 1000MG 1,000 MG/7.5 ML SYR IV ONE (06:00)
[2022-11-14] MEDS ORDERED: miSOPROStoL 200 MCG TAB PR ONE (06:04)
[2022-11-14 06:25] LABS: Hematocrit (blood only) 30.2 % (37.0-47.0); Hemoglobin 10.2 g/dl (12.0-16.0)
[2022-11-14] MEDS: DOCUSATE SODIUM 100 MG CAP PO SCH ×2 (08:59→20:49)
[2022-11-14] MEDS: PRENATAL VITAMIN 1 TAB PO SCH (08:59)
[2022-11-15] MEDS: IBUPROFEN 600 MG TAB PO PRN (00:30)
--- NOTE | 2022-11-15 05:21 | Obstetrical Progress Note ---
Date of Service <Marcie Avendano MD - Last Filed: 11/15/22 06:45> November 15, 2022 Assessment & Plan <Marcie Avendano MD - Last Filed: 11/15/22 06:45> (1) hemorrhage associated with low clotting factor: (2) care following vaginal delivery: 32 y/o female now PPD1 after vaginal delivery at 40+ weeks. Rh pos, RI. GBS pos treated x1 as labor was precipitous. Satisfactory post progress. Tolerating PO. Encourage ambulation. c/b post hemorrhage - treated with cytotec, no further heavy bleeding <Maricel Baca MD - Last Filed: 11/15/22 08:04> (1) hemorrhage associated with low clotting factor: (2) care following vaginal delivery: Subjective <Marcie Avendano MD - Last Filed: 11/15/22 06:45> Ambulation: ambulating normally Voiding: no voiding problems Passing Gas:: Yes Diet Tolerance:: regular diet Lochia:: Small Feeding Type:: breast feeding Physical Exam <Marcie Avendano MD - Last Filed: 11/15/22 06:45> Gen: well appearing female in NAD HEENT: AT NC Resp: CTAB no increased work of breathing CV: RRR no m/r/g clinically well perfused, no calf tenderness : uterus firm, non-tender at the level of the umbilicus Psych: appropriate mood and affect Neuro: alert and oriented Results & Data ([facility]) <Marcie Avendano MD - Last Filed: 11/15/22 06:45> Vital Signs (Past 12 Hours) Vital Signs Temp Pulse Resp BP Pulse Ox O2 Del Method 11/15/22 04:10 36.5 C 92 H 18 114/74 99 Room Air 11/15/22 00:30 36.6 C 93 H 18 114/78 98 Room Air 11/14/22 20:05 36.8 C 96 H 18 104/70 97 Room Air Laboratory Results 11/14/22 05:56 <Maricel Baca MD - Last Filed: 11/15/22 08:04> Co-Signing Physician Notes Resident Physician Supervision Note: I interviewed and examined the patient. Discussed with Dr. Avendano and agree with findings and plan as documented in the note. Any exceptions or clarifications are listed here: PP1 s/p c/b PPH, doing well. VSS, exam benign and wnl. CBC wnl today, stable for dc home Documented By: Maricel Baca MD Resident Activity Tracking <Marcie Avendano MD - Last Filed: 11/15/22 06:45> Resident Involvement: Resident Care Provided Care Provided: OB Delivery
[2022-11-15 06:33] LABS: Hemoglobin 8.5 g/dl (12.0-16.0); Mean Corpuscular Hemoglobin 31.1 pg (25.0-34.0); Mean Corpuscular Volume 91.6 fL (80.0-100.0); Mean Platelet Volume 9.7 fL (9.4-12.4); Platelet Count 208 K/uL (130-400); RDW Coefficient of Variation 13.4 % (11.5-14.5); RDW Standard Deviation 43.8 fL (36.4-46.3); Red Blood Count 2.73 M/uL (4.20-5.40); White Blood Count 7.62 K/ul (4.8-10.8)
[2022-11-15] MEDS: DOCUSATE SODIUM 100 MG CAP PO SCH (07:42)
[2022-11-15] MEDS: PRENATAL VITAMIN 1 TAB PO SCH (07:42)
[2022-11-15] MEDS ORDERED: bisacodyL 5 MG TABEC PO SCH (20:00)
[2022-11-16] MEDS ORDERED: bisacodyL 10 MG SUPP PR PRN (02:39)
== END 2022-11-15 12:00 | disposition home or self-care (01) | DRG 806 ==
LOC: OPB 23:25 → 4S1 23:29 → 4E2 11-14 04:30